=== PATIENT | female | born 1965 | race African-American/Black ===

== ENCOUNTER 2018-01-13 11:13 | Emergency (ER) | payer MEDICAID ==
[~2018-01-13] VITALS: Ht 167.6 cm; Wt 79.0 kg
[2018-01-13 11:23] VITALS: BP 132/97
[2018-01-13] MEDS ORDERED: KETOROLAC 60MG/2ML VIAL IM ONE (11:30)
[2018-01-13] MEDS ORDERED: ACETAMINOPHEN 325MG TABLET PO ONE (13:15)
== END 2018-01-13 14:28 | disposition home or self-care (01) ==
LOC: ER 12:46
DX: S80.211A Abrasion, right knee, initial encounter (principal); M54.5 Low back pain; W10.9XXA Fall (on) (from) unspecified stairs and steps, initial encounter; Y93.89 Activity, other specified; Y92.89 Other specified places as the place of occurrence of the external cause; I10 Essential (primary) hypertension; Z98.890 Other specified postprocedural states; Z87.891 Personal history of nicotine dependence; Z86.59 Personal history of other mental and behavioral disorders
CPT/HCPCS: 72100; 72220; 96372; 99284; J1885; X7700; Z7610

== ENCOUNTER 2019-07-11 10:10 | Emergency (ER) | payer MEDICAID ==
[~2019-07-11] VITALS: Ht 167.6 cm; Wt 74.0 kg
[2019-07-11 13:02] LABS: BASOPHILS % 0.7 % (0.0-2.0); EOSINOPHILS % 0.3 % (0.0-5.0); HEMATOCRIT. 41.7 % (36.0-48.0); HEMOGLOBIN. 14.1 g/dL (12.0-16.0); LYMPHOCYTES % 23.1 % (20.0-50.0); MEAN CORPUSCULAR VOLUME 91.7 fL (81.0-99.0); MEAN PLATELET VOLUME 9.2 fl (7.4-10.4); MONOCYTES % 8.3 % (2.0-8.0); NEUTROPHILS % 67.6 % (40.0-76.0); PLATELET 277 x1000/uL (130-400); RED BLOOD CELL COUNT 4.55 mill/uL (4.2-5.4)
[2019-07-11 13:10] LABS: CHLORIDE 112 mEq/L (98-107)
[2019-07-11 13:12] LABS: UCG SCREEN NEGATIVE
[2019-07-11 14:12] VITALS: BP 146/82
== END 2019-07-11 14:14 | disposition home or self-care (01) ==
LOC: ER 10:10
DX: M25.561 Pain in right knee (principal); M19.041 Primary osteoarthritis, right hand; F41.9 Anxiety disorder, unspecified; F32.9 Major depressive disorder, single episode, unspecified; I10 Essential (primary) hypertension; Z98.890 Other specified postprocedural states
CPT/HCPCS: 36415; 73130; 73562; 80053; 81025; 85025; 85651; 93971; 99284